=== PATIENT | female | born 1950 | race Asian ===

== ENCOUNTER 2022-04-28 07:55 | Day surgery (SDC) | payer OTHER ==
[~2022-04-28] VITALS: Ht 165.1 cm; Wt 47.2 kg
[~2022-04-28 07:55] MED LIST: CEFAZOLIN SOD 2 GM in D5W 50 ML IV ONE
[2022-04-28 08:51] LABS: ANION GAP 10 (5-15); CALCIUM 9.2 mg/dL (8.4-11.0); CHLORIDE 96 mmol/L (98-107); CREATININE 0.96 mg/dL (0.55-1.30); GLUCOSE 95 mg/dL (70-99); POTASSIUM 4.4 mmol/L (3.5-5.1); SODIUM SERUM 133 mmol/L (136-145); UREA NITROGEN, BLOOD 14 mg/dL (8-21)
[2022-04-28] MEDS ORDERED: MIDAZOLAM HCL 5 MG/5 ML VIAL ONE (11:20)
[2022-04-28] MEDS ORDERED: ONDANSETRON HCL 4 MG/2 ML VIAL ONE (11:20)
[2022-04-28] MEDS ORDERED: BUPIVACAINE /EPINEPHRINE/PF 0.5% 30 ML VIAL INJ ONE (11:20)
[2022-04-28] MEDS ORDERED: SUCCINYLCHOLINE CHLORIDE 20 MG/ML(QUELICIN) ONE (11:20)
[2022-04-28] MEDS ORDERED: KETOROLAC TROMETHAMINE 30 MG VIAL ONE (11:20)
[2022-04-28] MEDS ORDERED: NS 1000 ML IV.SOLN IV ONE (11:20)
[2022-04-28] MEDS ORDERED: ePHEDrine sulfate 50 MG/ML VIAL ONE (11:20)
[2022-04-28] MEDS ORDERED: NS IRRIG SOLN 1000 ML IR ONE (11:20)
[2022-04-28] MEDS ORDERED: PROPOFOL 200MG/ 20ML VIAL (DIPRIVAN) IV ONE (11:20)
[2022-04-28] MEDS ORDERED: SEVOFLURANE 15 MIN GAS INH ONE (11:20)
[2022-04-28] MEDS ORDERED: INDOCYANINE GREEN 25 MG VIAL ONE (11:20)
[2022-04-28] MEDS ORDERED: ROCURONIUM BROMIDE 10 MG/ML (ZEMURON) ONE (11:20)
[2022-04-28] MEDS ORDERED: ACETAMINOPHEN 325 MG TABLET PO ONE (12:30)
[2022-04-28] MEDS ORDERED: HYDROmorphone 1 MG/ML INJ. CARTRIDGE IVP PRN (12:30)
[2022-04-28] MEDS ORDERED: MORPHINE 4 MG INJ. 4 MG/ML VIAL IVP PRN (12:30)
[2022-04-28] MEDS ORDERED: ONDANSETRON HCL 4 MG/2 ML VIAL IVP PRN (12:30)
[2022-04-28 17:13] VITALS: BP_SYST 151
== END 2022-04-28 17:00 | disposition home or self-care (01) ==
LOC: SDS 07:55 → SMU 07:55 → SDS 17:00
PROVIDERS: ATTEND Surgery
DX: K80.10 Calculus of gallbladder with chronic cholecystitis without obstruction (principal); I10 Essential (primary) hypertension; E78.5 Hyperlipidemia, unspecified; M19.90 Unspecified osteoarthritis, unspecified site; Z79.899 Other long term (current) drug therapy; Z20.822 Contact with and (suspected) exposure to COVID-19
CPT/HCPCS: 36415 ×2; 47562; 80048; 93005; 88304; U0003; J3490; J0690; J1885; J2250; J2405; J2704; J0330; J7060; J7030; C1727; S2900